=== PATIENT | female | born 1970 | race Asian ===

== ENCOUNTER 2018-02-16 18:00 | Emergency (ER) | payer BC ==
[~2018-02-16] VITALS: Ht 162.6 cm; Wt 71.8 kg
[2018-02-16 18:06] VITALS: TEMP 97.5
[2018-02-16 18:54] LABS: BASO % 0.4 % (0.0-2.0); EOS # 0.1 (0.0-0.7); EOS % 1.2 % (0-4.0); GRAN # 4.1 (1.4-6.5); HEMATOCRIT 38.2 % (37.0-47.0); HEMOGLOBIN 12.4 g/dl (12.5-16.0); LYMPH # 2.6 (1.2-3.4); LYMPH % 35.5 % (20.0-51.0); MEAN CELL VOLUME 86 fl (80.0-100.0); MEAN CORPUSCULAR HEMOGLOBIN 28 pg (27.0-31.0); MEAN CORPUSCULAR HGB CONC 33 g/dl (33.0-37.0); MEAN PLATELET VOLUME 9.2 fl (7.4-10.4); MONO # 0.5 (0.1-0.6); MONO % 6.6 % (1.7-9.3); PLATELET COUNT 341 K/mm3 (130-400); RED BLOOD COUNT 4.42 M/mm3 (4.10-5.30); REDCELL DISTRIBUTION WIDTH-CV 13.8 % (11.5-14.5)
[2018-02-16 19:05] LABS: ALANINE AMINOTRANSFERASE 35 U/L (9-52); ALBUMIN 4.4 gm/dL (3.5-5.0); ALKALINE PHOSPHATASE 55 U/L (50-136); ANION GAP 12 mmol/L (7-16); AST,SGOT 29 U/L (15-37); BILIRUBIN,TOTAL 0.3 mg/dL (0.0-1.0); BLOOD UREA NITROGEN 6 mg/dL (7-17); CALCIUM 9.7 mg/dL (8.4-10.2); CARBON DIOXIDE 25 mmol/L (22-30); CHLORIDE 101 mmol/L (98-107); CREATINE KINASE 55 U/L (30-135); CREATININE, serum 0.61 mg/dL (0.52-1.25); GLUCOSE 95 mg/dL (74-106); LIPASE 64 U/L (23-300); POTASSIUM 3.8 mmol/L (3.4-5.0); SODIUM 138 mmol/L (137-145); TOTAL PROTEIN 7.6 gm/dL (6.4-8.2)
[2018-02-16 19:19] LABS: TROPONIN-I < 0.012 ng/mL (0.000-0.034)
[2018-02-16 20:14] VITALS: BP 136/79; PULSE 89
== END 2018-02-16 20:14 | disposition home or self-care (01) ==
LOC: COL.ER 18:00
PROVIDERS: Emergency Medicine
DX: R07.9 Chest pain, unspecified (principal)

== ENCOUNTER 2018-08-22 06:54 | Emergency (ER) | payer BC ==
[~2018-08-22] VITALS: Ht 162.6 cm; Wt 68.2 kg
[2018-08-22 07:11] VITALS: TEMP 98.4
[2018-08-22 07:38] LABS: COLLECTION METHOD CLEAN CATCH
[2018-08-22 07:48] LABS: BASO % 0.1 % (0.0-2.0); GRAN # 7.6 (1.4-6.5); GRAN % 82.2 % (42.2-75.2); HEMOGLOBIN 13.6 g/dl (12.5-16.0); LYMPH # 1.1 (1.2-3.4); LYMPH % 12.2 % (20.0-51.0); MEAN CELL VOLUME 86 fl (80.0-100.0); MEAN CORPUSCULAR HEMOGLOBIN 29 pg (27.0-31.0); MEAN CORPUSCULAR HGB CONC 34 g/dl (33.0-37.0); MONO # 0.5 (0.1-0.6); MONO % 5.2 % (1.7-9.3); PLATELET COUNT 364 K/mm3 (130-400); RED BLOOD COUNT 4.66 M/mm3 (4.10-5.30)
[2018-08-22 07:55] LABS: ALBUMIN 4.6 gm/dL (3.5-5.0); BILIRUBIN,TOTAL 0.3 mg/dL (0.0-1.0); CALCIUM 9.3 mg/dL (8.4-10.2); CREATININE, serum 0.54 mg/dL (0.52-1.25); MAGNESIUM 1.9 mg/dL (1.6-2.3); POTASSIUM 3.8 mmol/L (3.4-5.0); TOTAL PROTEIN 8.2 gm/dL (6.4-8.2)
[2018-08-22 07:57] LABS: C-REACTIVE PROTEIN 0.5 mg/dL (0.0-0.9)
[2018-08-22 08:00] LABS: MUCOUS Present /lpf; PH 5 (5-8); SQUAMOUS EPITHELIAL 0-2 /hpf; URINE APPEARANCE Clear; URINE BACTERIA None Seen /hpf; URINE BILIRUBIN Negative (NEGATIVE); URINE BLOOD 2+ (NEGATIVE); URINE COLOR Yellow; URINE GLUCOSE Negative (NEGATIVE); URINE KETONE Trace (NEGATIVE); URINE LEUKOCYTE ESTERASE Negative (NEGATIVE); URINE NITRATE Negative (NEGATIVE); URINE PROTEIN(semi-quant) 1+ (NEGATIVE); URINE UROBILINOGEN Negative (NEGATIVE)
[2018-08-22] MEDS ORDERED: ZOFRAN ODT4 MG PO (09:17)
[2018-08-22] MEDS ORDERED: NORCO 325 MG-51 TAB PO (10:03)
[2018-08-22 10:06] VITALS: BP 135/82; PULSE 68
== END 2018-08-22 10:06 | disposition home or self-care (01) ==
LOC: COL.ER 06:54
PROVIDERS: Emergency Medicine
DX: D25.9 Leiomyoma of uterus, unspecified (principal)
CPT/HCPCS: J2405; J7030; Q9967